=== PATIENT | female | born 1985 | race Caucasian/White ===

== ENCOUNTER 2019-11-09 00:15 | Emergency (ER) | payer BC, SELFPAY ==
[2019-11-09 00:21] VITALS: BP 116/71; PULSE 106; RESP 20; TEMP 36.7; O2SAT 100
--- NOTE | 2019-11-09 00:26 | ED_ITS ---
I attest that this documentation has been prepared under the direction and in the presence of Ovidio Centeno MD. Karina Tavares Scribe 11/09/19;00:26 HPI - Fever General Chief Complaint: Fever Stated Complaint: FEVER, COUGH Time Seen by Provider: 11/09/19 00:29 History of Present Illness HPI Narrative: Pt is a 34 y/o female who presents to the ED with c/o a fever Pt also reports a cough, MD elicited complaint: fever Associated symptoms: cough Related Data Home Medications Medication Instructions Recorded Confirmed No Home Medications 11/09/19 11/09/19 Allergies Allergy/AdvReac Type Severity Reaction Status Date / Time No Known Allergies Allergy Mild Verified 11/09/19 00:17 [facility] Family History Family History (Updated 12/23/18 @ 13:45 by DOCTOR UNKNOWN) Mother Hypertension Family history of lung cancer, Onset Age: 54 Family history of malignant neoplasm of breast in first degree relative, Onset Age: 38 Grandparent Family history of malignant neoplasm Family history of lung cancer Social History Social History Smoking status: Never smoker Alcohol intake: current Gender identity (if verbalized by the patient): Female Course Vital Signs Vital signs: Vital Signs Temperature 36.7 C 11/09/19 00:21 Pulse Rate 106 H 11/09/19 00:21 Respiratory Rate 20 11/09/19 00:21 Blood Pressure 116/71 11/09/19 00:21 Pulse Oximetry 100 11/09/19 00:21 Temperature 36.7 C 11/09/19 00:21 Pulse Rate 106 H 11/09/19 00:21 Respiratory Rate 20 11/09/19 00:21 Blood Pressure 116/71 11/09/19 00:21 Pulse Oximetry 100 11/09/19 00:21 Discharge Plan Discharge Prescriptions: No Action No Home Medications RF: 0
--- NOTE | 2019-11-09 00:40 | ED.NAVMDI ---
HPI - Nausea/Vomiting/Diarrhea General Chief complaint: Nausea/Vomiting/Diarrhea Stated complaint: FEVER, COUGH Time Seen by Provider: 11/09/19 00:29 Source: patient and RN notes reviewed Mode of arrival: other Limitations: no limitations History of Present Illness HPI Narrative: Pt is a 34 y/o female who presents to the ED with c/o N/V/D that began at 5 PM yesterday. Pt states she had a head cold last week with sinus congestion and a sore throat. Pt has had 8 episodes of emesis and about 8-10 episodes of diarrhea. Pt notes that she got sick in [place] a few years ago and had some left over [place] Pepto Bismol , but with no releif of her sx. Pt also reports a cough, body aches, epigastric abdominal pain, and dysuria, but denies hematuria, hematemesis, frequent urination, and blood in her stools. MD elicited complaint: nausea, vomiting and diarrhea Onset (ago): hour(s) Associated nausea: Yes Associated abdominal pain: Yes Location of pain: epigastric Pain consistency: other (still present) Relieving factors: none Associated symptoms: myalgias, cough, dysuria and other Treatment prior to arrival: other OTC medicine ([place]izen [place] version of Pepto Bismol) Related Data Allergies Allergy/AdvReac Type Severity Reaction Status Date / Time No Known Allergies Allergy Mild Verified 11/09/19 00:17 Review of Systems Respiratory: Respiratory: Reports cough Gastrointestinal: Gastrointestinal: Reports abdominal pain (epigastric), Denies hematochezia, Reports diarrhea (with 8-10 episodes), Reports nausea, Reports vomiting (with 8 episodes) and Denies hematemesis Genitourinary: Genitourinary: Denies hematuria, Denies nocturia and Reports dysuria Musculoskeletal: Musculoskeletal: Reports myalgias PMFSH Past Medical History Medical History (Updated 11/09/19 @ 01:42 by Ovidio Centeno MD) Anemia Anxiety and depression Seasonal allergies Surgical History Surgical History (Updated 11/09/19 @ 00:35 by Karina Tavares) History of wisdom tooth extraction Family History Family History (Updated 12/23/18 @ 13:45 by DOCTOR UNKNOWN) Mother Hypertension Family history of lung cancer, Onset Age: 54 Family history of malignant neoplasm of breast in first degree relative, Onset Age: 38 Grandparent Family history of malignant neoplasm Family history of lung cancer Social History Social History (Updated 11/09/19 @ 00:35 by Karina Tavares) Smoking status: Never smoker Alcohol intake: current Substance use: current Substance use type: marijuana Gender identity (if verbalized by the patient): Female Exam Narrative: Exam Narrative: GENERAL: Uncomfortable-appearing, well-nourished, and in no acute distress. HEAD: Normocephalic, atraumatic. ENT: Mucous membranes moist. CHEST: Clear to auscultation. No respiratory distress. HEART: Tachycardic and regular. Normal peripheral pulses. ABDOMEN: Soft, mild diffuse tenderness without guarding, nondistended. EXTREMITIES: Normal range of motion. No edema. NEURO: Alert and oriented x3. PSYCH: Normal mood and affect. Course Course Emergency Course: Feels much better after fluids and Zofran. Repeat examination of the abdomen elicits no focal tenderness. Discharge home with supportive therapy. Bentyl prior to discharge given. Vital Signs Vital signs: Vital Signs Temperature 98.0 F 11/09/19 00:21 Pulse Rate 106 H 11/09/19 00:21 Respiratory Rate 20 11/09/19 00:21 Blood Pressure 116/71 11/09/19 00:21 Pulse Oximetry 100 11/09/19 00:21 Temperature 98.0 F 11/09/19 00:21 Pulse Rate 106 H 11/09/19 00:21 Respiratory Rate 20 11/09/19 00:21 Blood Pressure 116/71 11/09/19 00:21 Pulse Oximetry 100 11/09/19 00:21 MDM - Nausea/Vomiting/Diarrhea Lab Data Result diagrams: 11/09/19 00:55 11/09/19 00:55 Labs: Lab Results 11/09/19 11/09/19 11/09/19 Range/Units 00:55 00:55 00:55 WBC 16.8 H (4.5-10.0) K/mm3 R
[2019-11-09] MEDS: ONDANSETRON INJ 4 MG/2 ML VIAL IV PUSH (00:55)
[2019-11-09] MEDS: SODIUM CHLORIDE 0.9% IV 1,000 ML 999 ML IV CONT (00:55)
[2019-11-09 01:01] LABS: Basophils Absolute Auto 0.1 K/mm3 (0.0-0.1); Basophils Percent Auto 0.3 % (0.2-1.2); Eosinophils Absolute Auto 0.1 K/mm3 (0-0.3); Eosinophils Percent Auto 0.4 % (0-4.4); Hematocrit 43.1 % (37.0-47.0); Hemoglobin 14.3 g/dL (12.0-15.0); Immature Granulocyte Absolute 0.05 K/mm3 (0.00-0.031); Immature Granulocyte Percent A 0.3 % (0-0.5); Lymphocytes Absolute Auto 0.84 K/mm3 (0.9-3.2); Mean Corpuscular HGB Conc 33.2 g/dl (32-36); Mean Corpuscular Hemoglobin 29.3 pg (26-34); Mean Corpuscular Volume 88.3 fl (80-100); Mean Platelet Volume 8.7 fl (7.4-10.4); Monocytes Absolute Auto 0.9 K/mm3 (0.1-0.6); Monocytes Percent Auto 5.2 % (2.6-8.5); Neutrophils Absolute Auto 14.9 K/mm3 (1.3-6.7); Neutrophils Percent Auto 88.8 % (45.5-73.1); Platelet Count Result 221 k/mm3 (150-375); Red Blood Count 4.88 M/mm3 (4.2-5.4); Red Cell Distribution Width 11.3 % (11.5-14.5); White Blood Count 16.8 K/mm3 (4.5-10.0)
[2019-11-09 01:09] LABS: Add Urine Microscopic? YES; Appearance Urine Clear (Clear); Bacteria Urine Trace /hpf; Bilirubin Urine Negative (Negative); Blood Urine 3+ (Negative); Color Urine Amber (Yellow); Glucose Urine UA Negative (Negative); Ketones Urine 1+ mg/dL (Negative); Leukocyte Esterase Ur Negative LEU/UL (Negative); Mucus Urine Heavy /lpf; Nitrate Urine Negative (Negative); Protein Urine 2+ mg/dL (Negative); RBC Urine 51-75 /hpf (0-2); Squamous Epithelial Cell Urine Few /hpf (Few); Urobilinogen Urine Negative mg/dL (<2.0); WBC Urine 0-3 /hpf
[2019-11-09 01:13] LABS: Alanine Aminotransferase 16 U/L (4-35); Albumin Level 4.7 g/dL (3.5-5.1); Alkaline Phosphatase 78 U/L (38-126); Aspartate Amino Transferase 22 U/L (14-36); Bilirubin,Total 0.6 mg/dL (0.2-1.3); Blood Urea Nitrogen 20 mg/dL (7-17); Calcium 9.1 mg/dL (8.4-10.2); Carbon Dioxide 26 mmol/L (22-30); Chloride 100 mmol/L (98-107); Estimated Glomerular Filt Rate > 60; Glucose 131 mg/dL (65-105); Lipase 47 U/L (23-300); Potassium 3.9 mmol/L (3.4-5.0); Sodium 140 mmol/L (137-145)
[2019-11-09 01:17] LABS: Specific Grav Ur 1.034 (1.001-1.035)
[2019-11-09] MEDS: DICYCLOMINE HCL 10 MG CAPSULE 20 MG PO (01:53)
[2019-11-09 01:56] VITALS: BP 112/77; PULSE 79; RESP 18; O2SAT 98
--- NOTE | 2019-11-28 19:20 | PC.NURSE ---
LATE ENTRY This note is being entered to document information to the patient's record. The following information was omitted on [11/09/19], by [Red Ruiz] 1L NS finished infusing at 01:50.
== END 2019-11-09 01:58 | disposition home or self-care (01) ==
PROVIDERS: Emergency Provider Emergency Medicine; PCP Internal Medicine
DX: K52.9 Noninfective gastroenteritis and colitis, unspecified (principal)
CPT/HCPCS: 36415; 80053; 81001; 83690; 85025; 87804; 96361; 96374; 99284; A9270; J2405; J7030

== ENCOUNTER 2020-08-30 14:56 | Outpatient (CLI) | payer BC, SELFPAY ==
--- NOTE | ~2020-08-30 | MM_ITS ---
EXAMINATION: MM screening [facility] w kumar HISTORY: Screening TECHNIQUE: Craniocaudal and mediolateral oblique 3-D tomosynthesis images were obtained and synthetic 2-D images were generated. CAD analysis was submitted and interpreted. COMPARISON: No prior mammogram is available for comparison at this institution. BREAST PARENCHYMAL COMPOSITION: There are scattered areas of fibroglandular density. FINDINGS: There is no evidence of suspicious mass, calcification, or architectural distortion to sugg est malignancy in either breast. There has been no suspicious interval change. IMPRESSION: 1. No mammographic evidence of malignancy. 2. Recommend routine screening mammography in one year. BI-RADS Category 1: Negative Reviewed, dictated and finalized at location A. R MECHANIC
== END 2020-08-30 14:57 | disposition home or self-care (01) ==
PROVIDERS: PCP Internal Medicine; Visit Provider Internal Medicine
DX: Z12.31 Encounter for screening mammogram for malignant neoplasm of breast (principal); Z80.3 Family history of malignant neoplasm of breast
CPT/HCPCS: 77063; 77067